=== PATIENT | male | born 1970 | race Caucasian/White ===

== ENCOUNTER 2020-02-19 03:58 | Emergency (ER) | payer BC ==
[~2020-02-19] VITALS: Ht 167.6 cm; Wt 69.9 kg
[2020-02-19 03:59] VITALS: Ht 167.6 cm; Wt 69.9 kg
[2020-02-19 04:59] LABS: CALCIUM 8.1 mg/dL (8.5-10.1); CARBON DIOXIDE 27.9 mmol/L (21-32); CREATININE SERUM 2.1 mg/dL (0.7-1.3); POTASSIUM SERUM 3.7 mmol/L (3.5-5.1)
[2020-02-19 05:04] LABS: BILIRUBIN TOTAL 0.31 mg/dL (0.20-1.00)
[2020-02-19 05:06] LABS: ALBUMIN 2.2 g/dL (3.4-5.0)
[2020-02-19 05:11] LABS: BASOPHIL % 0.4 % (0-2); PLATELET COUNT 322 x10^3mcL (130-400); RED CELL DISTRIBUTION WIDTH 12.8 % (11.5-14.5)
[2020-02-19 07:35] VITALS: BP 148/79
== END 2020-02-19 07:35 | disposition home or self-care (01) ==
LOC: ED 03:58
PROVIDERS: Emergency Medicine
DX: K21.9 Gastro-esophageal reflux disease without esophagitis (principal); R09.89 Other specified symptoms and signs involving the circulatory and respiratory systems; Z20.828 Contact with and (suspected) exposure to other viral communicable diseases
CPT/HCPCS: 83880